=== PATIENT | female | born 1990 | race Caucasian/White ===

== ENCOUNTER 2021-10-29 10:36 | Inpatient (IN) | payer OTHER ==
[2021-10-29 10:50] VITALS: BP 100/61
[2021-10-29] MEDS ORDERED: 'CLONIDINE0.1 MG PO (10:54)
[2021-10-29] MEDS ORDERED: BUPRENORPHINE HY8 MG SL (10:55)
[2021-10-29] MEDS ORDERED: NEURONTIN300 MG PO (10:55)
[2021-10-29] MEDS ORDERED: BUSPAR15 MG PO (10:56)
[2021-10-29] MEDS ORDERED: TOPIRAMATE25 M3 PO (10:56)
[2021-10-29] MEDS ORDERED: QUETIAPINE FUMA50 M1 PO (10:58)
[2021-10-29 12:12] LABS: BILIRUBIN Negative (Negative); BLOOD Negative (Negative); CLARITY Clear (Clear); COLOR Dark Yellow (Yellow); GLUCOSE Negative (Negative); KETONE Trace (Negative); LEUKO ESTERASE Trace (Negative); NITRITE Negative (Negative); PH 5.5 (4.5-8.0)
[2021-10-29 12:28] LABS: BACTERIA 4+; MUCOUS 2+; URINE AMPHETAMINES < 1000 (1000ng/ml); URINE BARBITURATES < 200 (200ng/ml); URINE BENZODIAZEPINES > 200 (200ng/ml); URINE CANNABINOIDS (THC) < 50 (50ng/ml); URINE COCAINE < 300 (300ng/ml); URINE METHADONE < 300 (300ng/ml); URINE OPIATES < 300 (300ng/ml)
[2021-10-29 12:29] LABS: URINE PHENCYCLIDINE < 25 (25ng/ml)
[2021-10-29 13:26] LABS: BASO # 0.1 10*3/uL (0.0-0.1); BASO % 0.8 % (0.0-1.0); EOS # 0.5 10*3/uL (0.0-0.4); EOS % 6.2 % (1.0-4.0); HEMATOCRIT 46.4 % (37.0-47.0); LYMPH # 2.5 10*3/uL (1.3-4.4); LYMPH % 34.3 % (27.0-41.0); MEAN CELL VOLUME 93.5 fl (81.0-99.0); MEAN CORPUSCULAR HGB 29.8 pg (27.0-31.0); MEAN CORPUSCULAR HGB CONC 31.9 g/dl (33.0-37.0); MEAN PLATELET VOLUME 9.8 fl (9.6-12.3); MONO # 0.4 10*3/uL (0.1-1.0); MONO % 5.8 % (3.0-9.0); NEUT # 3.8 10*3/uL (2.3-7.9); NEUT % 52.6 % (47.0-73.0); PLATELET COUNT AUTOMATED 220 10*3/uL (130-400); RED BLOOD COUNT 4.96 10*6/uL (4.10-5.10); RED CELL DISTRI WIDTH 12.2 % (0-14.5); WHITE BLOOD COUNT 7.3 10*3/uL (4.8-10.8)
[2021-10-29 13:43] LABS: ALBUMIN 3.5 gm/dl (3.1-4.5); ALKALINE PHOSPHATASE 85 U/L (45-117); BUN 10 mg/dl (7-24); CHLORIDE 107 mmol/L (98-107); CREATININE 0.77 mg/dL (0.55-1.02); LIPASE 87 U/L (73-393); SGOT/AST 89 IU/L (3-35); SGPT/ALT 99 U/L (12-78); SODIUM 139 mmol/L (136-145); TOTAL PROTEIN 7.6 gm/dL (6.4-8.2)
[2021-10-29 13:45] LABS: ACETAMINOPHEN (TYLENOL) < 5.0 ug/ml (10-30); ETHYL ALCOHOL < 3.0 mg/dl (<3)
[2021-10-29 23:13] VITALS: BP 104/64
[2021-10-30 02:05] VITALS: BP 99/52
[2021-10-30 08:00] VITALS: BP 93/51
[2021-10-30 11:39] VITALS: BP 70/34
[2021-10-30 12:00] VITALS: BP 74/40
[2021-10-30 16:00] VITALS: BP 91/47
[2021-10-30 20:00] VITALS: BP 81/41
[2021-10-31] VITALS (7 sets, daily range): BP systolic 69–110; BP diastolic 34–74
[2021-11-01] VITALS: BP 91/54
[2021-11-01 04:00] VITALS: BP 108/58
[2021-11-01] MEDS ORDERED: KLONOPIN1 M1 PO (11:24)
[2021-11-01] MEDS ORDERED: AUGMENTIN 875-875 MG PO (11:50)
[2021-11-01 12:00] VITALS: BP 108/74
== END 2021-11-01 13:35 | disposition home or self-care (01) | DRG 773 ==
LOC: ED 10:36 → EDHOLD 15:14 → 4E 15:14
PROVIDERS: Emergency Medicine; Physician Assistant; ADMIT Internal Medicine; ATTEND Internal Medicine
DX: F11.23 Opioid dependence with withdrawal (principal); F10.10 Alcohol abuse, uncomplicated; F13.239 Sedative, hypnotic or anxiolytic dependence with withdrawal, unspecified; N39.0 Urinary tract infection, site not specified; G62.9 Polyneuropathy, unspecified; F41.9 Anxiety disorder, unspecified; F32.A Depression, unspecified; I95.9 Hypotension, unspecified; Z79.899 Other long term (current) drug therapy